=== PATIENT | male | born 2000 | race Caucasian/White ===

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

== ENCOUNTER → 2020-02-12 | Outpatient (CLI) | payer OTHER, SELFPAY | END | disposition home or self-care (01) | LOC: LABSPEC 16:01 | PROVIDERS: PCP Family Medicine; Referring Provider Family Medicine; Visit Provider Registered Nurse | DX: J03.90 Acute tonsillitis, unspecified (principal) | CPT/HCPCS: 87070 ==

== ENCOUNTER 2023-06-25 20:43 | Emergency (ER) | payer BC, SELFPAY ==
[2023-06-25 20:44] VITALS: BP 130/90; PULSE 78; RESP 18; TEMP 37; O2SAT 97
[2023-06-25 22:05] LABS: Absolute Lymphocyte Count 2.91 X10^3/uL (0.83-4.51); Absolute Neutrophil Count 5.3 X10^3/uL (2.0-7.7); Basophil# 0.07 X10^3/uL; Basophil% 0.8 % (0-1); Eosinophil# 0.14 X10^3/uL; Eosinophils% 1.5 % (0-5); Hematocrit 44.4 % (40-54); Hemoglobin 15.2 g/dL (13.0-16.5); Lymphocyte # 2.91 X10^3/ul (0.83-4.51); Lymphocyte % 32.1 % (19-41); Mean Corp Hgb Conc 34.2 g/dL (32-36); Mean Corpuscular Volume 87.7 fL (80-94); Mean Platelet Vol. 10.4 fl (6.2-12.0); Monocyte# 0.66 X10^3/uL; Monocyte% 7.3 % (0-10); NRBC Flagged by Analyzer 0 % (0-5); Neutrophil # 5.26 X10^3/uL (2.7-7.7); Neutrophil % 58.1 % (47-70); Platelet Count 254 K/mm3 (150-450); RBC Distribution Width CV 11.8 % (11.6-14.6); RBC Distribution Width SD 37.9 fl (35.1-43.9); Red Blood Count 5.06 M/mm3 (4.6-6.2); White Blood Count 9.1 K/mm3 (4.4-11.0)
--- NOTE | 2023-06-25 22:17 | EKG12_ITS ---
Test Reason : Blood Pressure : / mmHG Vent. Rate : 066 BPM Atrial Rate : 066 BPM P-R Int : 142 ms QRS Dur : 076 ms QT Int : 394 ms P-R-T Axes : 076 084 070 degrees QTc Int : 413 ms Normal sinus rhythm with sinus arrhythmia Normal ECG Confirmed by Yousuf Rayo ([id number]), staff editor AMINATA URIBE ([id number]) on 06/27/2023 11:03:37 AM Referred By: Confirmed By:Yousuf Rayo
--- NOTE | 2023-06-25 22:17 | ED.VIS.GI ---
HPI HPI - GI History of Present Illness Chief Complaint: Abd Pain Informant: patient Narrative Narrative: Healthy 22-year-old male has been having some right mid abdominal pain for the past 1.5-2 weeks. Hurts worse to move sometimes, it never is worse with eating, drinking, having bowel movements, or urinating. Does not radiate to the back. Saw his doctor and was prescribed muscle relaxers, diagnosed clinically as an oblique muscle strain. States the pain has been persisting but not necessarily bad. Today, however, he was having pain on the contralateral side and it went up into his left lower chest and made him feel lightheaded, this lasted a or 20 or 30 minutes before it really resolved and he came in because of that to be evaluated. He has not had any tests or x-rays done. He denies feeling racing heartbeat/palpitations or dyspnea or pleuritic discomfort. No pain or swelling in the legs. No recent travel out of the area or hospitalization/surgery. PFSH PFSH Medical History no medical history no medical history Allergy/AdvReac Type Severity Reaction Status Date / Time No Known Allergies Allergy Verified 06/25/23 20:44 Surgical History no surgical history no surgical history Social History (Updated 06/25/23 @ 22:[address] Miguel Angel Fernandes MD) Smoking Status: Smoker, status unknown substance use type: marijuana and other details: No IV drug use ROS ROS ED Constitutional Constitutional ED: Denies chills or fever(s) Eyes Eyes: Denies change in vision or diplopia ENT ENT ED: Denies rhinorrhea or sore throat Cardiovascular Cardiovascular: Reports chest pain and lightheadedness; Denies edema, orthostatic symptoms or palpitations Respiratory/Chest Respiratory/Chest: Denies cough or dyspnea Gastrointestinal Gastrointestinal: Reports abdominal pain; Denies diarrhea, hematochezia, melena, nausea or vomiting Genitourinary Genitourinary ED: Denies dysuria or hematuria Musculoskeletal Musculoskeletal: Denies back pain or neck pain Integumentary Denies abscess or rash Neurologic Neurologic: Denies headache(s), paresthesias or weakness Psychiatric Psychiatric: Denies anxiety or suicidal thoughts EXAM Physical Exam Const Vital Signs: 06/25/23 20:44 06/25/23 23:00 Temperature 98.6 F Temperature Source Temporal Pulse Rate 78 64 Respiratory Rate 18 16 Blood Pressure 130/90 H 108/81 H Blood Pressure Mean 103 90 Pulse Ox 97 99 Oxygen Delivery Method Room Air Room Air Positive well nourished and well developed General Appearance ED: well developed and NAD HEENT Reports moist mucous membranes normocephalic and atraumatic Eyes PERRL and EOMs intact bilaterally Neck full ROM and supple Chest Wall Chest Narrative: Mildly tender in the left costal margin, and the lateral aspect of the epigastrium. Below this in the abdomen, there is no tenderness. Xiphoid process is a little sore no crepitance or overlying skin abnormalities/color change. No other rib tenderness. Although not tender currently, patient suggests that the contralateral side was the pain he was having for the past 1.5 weeks, also costal margin. Resp normal respiratory effort and clear to auscultation bilaterally Cardio regular rate, regular rhythm and no murmurs Rate: Negative for tachycardic GI non-tender and non-distended Auscultation: normoactive bowel sounds Palpation: soft Back/Spine no CVA tenderness General Back: other FROM Extremity normal to inspection General Extremety ED: Negative for edema, pulses abnormal or tenderness General Extremity: Negative for edema or pulses abnormal Neuro oriented x3, CN's II-XII intact bilaterally and no sensory deficits noted Sensorium / Orientation: awake and alert Motor Exam: strength 5/5 throughout Psych mental status grossly normal and thought process normal Skin no rashes or lesions noted and no wounds MDM MDM MDM Narrative Medical decision making narrative: Patient has a very benign exam I suspect that he probably does have musculoskeletal etiology. However since he had chest discomfort earlier with some associated lightheadedness the differential does include cardiopulmonary etiologies, however we do not need to workup for pulmonary embolism since his PERC score is 0 and his vital signs are normal. Exam is very benign I do not think he needs advanced imaging of his abdomen/pelvis. Did obtain some basic labs including liver enzymes and lipase which were all normal except for mild hyperbilirubinemia which she has had in the past and may be indicative of Gilbert's disease; his EKG is normal, 2 view chest x-ray my interpretation is normal, I do not think he needs a troponin, if he had myocarditis he would more than likely still have symptoms, he does not have them right at this time. GERD is in the differential as are musculoskeletal etiologies, stable for discharge home we discussed follow-up and empiric treatment if he desires. He was offered Toradol here but he declined because the pain is not that bad. Encouraged to use NSAIDs as well because I do not think this is an intraluminal GI issue. Lab Data Attestation: I reviewed the patient's lab results. Labs: Laboratory Results - last 24 hr 06/25/23 06/25/23 22:01 22:59 WBC 9.1 RBC 5.06 Hgb 15.2 Hct 44.4 MCV 87.7 MCH 30.0 MCHC 34.2 RDW Std Deviation 37.9 RDW Coeff of Jeff 11.8 Plt Count 254 MPV 10.4 Immature Gran % (Auto) 0.200 Neut % (Auto) 58.1 Lymph % (Auto) 32.1 [place] % (Auto) 7.3 Eos % (Auto) 1.5 Baso % (Auto) 0.8 Absolute Neuts (auto) 5.3 Absolute Lymphs (auto) 2.91 Nucleated RBC % 0 Sodium 139 Potassium 4.3 Chloride 105 Carbon Dioxide 29.0 Anion Gap 5 BUN 19 H Creatinine 1.26 Estim Creat Clear Calc 82.48 Est GFR (MDRD) Af Amer 91 Est GFR (MDRD) Non-Af 75 BUN/Creatinine Ratio 15.1 Glucose 103 Calcium 9.6 Total Bilirubin 2.20 H AST 18 ALT 23 Alkaline Phosphatase 63 Total Protein 7.8 Albumin 4.5 Globulin 3.3 Albumin/Globulin Ratio 1.4 Lipase 17 Urine Color Yellow Urine Clarity Sl. Cloudy Urine pH 6.5 Ur Specific Smyer 1.015 Urine Protein 15 H Urine Glucose (UA) Normal Urine Ketones 5 H Urine Occult Blood Negative Urine Nitrite Negative Urine Bilirubin Negative Urine Urobilinogen 1 H Ur Leukocyte Esterase 25 H Urine RBC 0 SEEN Urine WBC 0 SEEN Ur Squamous Epith Cells 0 SEEN Amorphous Sediment 2+ Urine Bacteria 1+ Urine Mucus RARE Rhythm Strip Rhythm Strip: Sinus Rhythm Rate: 65 Ectopy: None EKG Initial EKG: Attestation: I personally reviewed and interpreted this EKG as follows: Interpretation: Sinus Rhythm and No Acute Injury Pattern Comments: nml EKG Discharge Plan Triage Chief Complaint: Abd Pain ED Provider: Miguel Angel Fernandes Dx/Rx/DC Orders Clinical Impression: Musculoskeletal chest pain, Right sided abdominal pain Instructions: ED Chest Pain, Noncardiac Primary Care Provider: Manny Ivory Referrals: Manny Ivory MD [Primary Care Provider] - 1 Week if not improving Disposition Disposition: Home, Self Care
[2023-06-25 22:27] LABS: ALB/GLOB Ratio 1.4 RATIO (0.9-2.4); AST(SGOT) 18 U/L (15-37); Alanine Aminotransfer ALT/SGPT 23 U/L (16-61); Albumin, Serum 4.5 g/dL (3.2-5.0); Alkaline Phosphatase 63 U/L (45-117); Anion Gap 5 (5-15); BUN 19 mg/dL (7-18); BUN/Creat Ratio 15.1 RATIO (10-20); Calcium,Total 9.6 mg/dL (8.5-10.1); Chloride 105 mmol/L (98-107); Creatinine, Serum 1.26 mg/dL (0.70-1.30); EST Glomerular Filtration Rate 75 mL/min (>60); Est Glom Filt Rate - Afr Amer 91 mL/min (>60); Estimated Creatinine Clearance 82.48 ml/min; Globulin 3.3 g/dL (2.2-4.2); Glucose 103 mg/dL (74-106); Potassium 4.3 mmol/L (3.5-5.1); Protein, Total 7.8 g/dL (6.4-8.2); Sodium Level 139 mmol/L (136-145)
--- NOTE | 2023-06-25 22:43 | RAD_ITS ---
EXAM: XR CHEST, 2 VIEWS CLINICAL INDICATION: chest pain TECHNIQUE: Frontal and lateral views of the chest. COMPARISON: No relevant prior studies available. FINDINGS: LUNGS AND PLEURAL SPACES: Unremarkable. No consolidation or edema. No pneumothorax. No effusion. HEART: Unremarkable. Cardiac silhouette not enlarged. Normal pulmonary vasculature. MEDIASTINUM: Central airways and mediastinal contour are unremarkable. No mediastinal widening. Trachea is midline. BONES/JOINTS: Unremarkable. No acute fracture. SOFT TISSUES: Unremarkable. RAD/Chest PA and Lateral IMPRESSION: No radiographic evidence of acute cardiopulmonary disease. Electronically Signed: Rashad Shearer MD at 23:34 EDT ,
[2023-06-25 23:00] VITALS: BP 108/81; PULSE 64; RESP 16; O2SAT 99
--- NOTE | 2023-06-25 23:05 | ED.RN ---
PT STATES THAT THE ABDOMINAL PAIN IN HIS RUQ TRAVELS TO THE LEFT SIDE OF HIS CHEST. DOES ENDORSE SOME DIZZINESS PREVIOUSLY IN THE EVENING BUT DENIES ANY AT THIS TIME.
[2023-06-25 23:06] LABS: Red Blood Cells-Urine 0 SEEN /hpf (0-5); Squamous Epithelial Cells - UA 0 SEEN /hpf (0-5); White Blood Cells 0 SEEN /hpf (0-5)
[2023-06-25 23:07] LABS: Lipase 17 U/L (13-75)
[2023-06-25 23:08] LABS: Color, Urine Yellow (Yellow); Glucose, Dipstick Normal (Normal); Ketone-Dipstick 5 mg/dl (Negative); Leukocyte Esterase-Dipstick 25 /ul (Negative); Nitrite-Dipstick Negative (Negative); Occult Blood-Urine Negative /ul (Negative); Protein-Dipstick 15 mg/dl (Negative); Specific Gravity, Urine 1.015 (1.002-1.030); Urine Bilirubin Dipstick Negative (Negative); Urine Clarity Sl. Cloudy (Clear); Urine Urobilinogen 1 mg/dl (Normal); Urine pH 6.5 (5.0 - 8.0)
[2023-06-25 23:13] LABS: Amorphous Sediment 2+; Bacteria 1+ /hpf (None Seen); Mucous, Urine RARE /hpf (<or=2+)
[2023-06-25 23:28] VITALS: BP 107/77; PULSE 64; RESP 16; TEMP 36.4; O2SAT 99
== END 2023-06-25 23:31 | disposition home or self-care (01) ==
PROVIDERS: Emergency Provider Emergency Medicine; PCP Family Medicine; Visit Provider Emergency Medicine
DX: R07.89 Other chest pain (principal); R10.9 Unspecified abdominal pain; R42 Dizziness and giddiness
CPT/HCPCS: 71046; 80053; 81001; 83690; 85025; 93005; 96374; 99283; A4216

== ENCOUNTER 2023-07-23 12:49 | Emergency (ER) | payer BC, SELFPAY ==
[2023-07-23 12:49] VITALS: BP 136/99; PULSE 72; RESP 16; TEMP 36.2; O2SAT 99; BMI 17.8
--- NOTE | 2023-07-23 14:02 | EDS_ITS ---
HPI History of Present Illness Chief Complaint: Head Injury Informant: patient Onset/Context/Timing Mechanism/Context: Blunt Injury Current Severity: Mild Maximum Severity: Mild Associated Symptoms Associated Symptoms: Negative for Parasthesias, Weakness, Loss of function, Inability to ambulate, Loss of consciousness or Amnesia Narrative Narrative: 23-year-old male no seen past medical or surgical history other than history of reflux. He is on omeprazole. Yesterday he was putting up a canopy and one of the poles struck him in the left side of his head. No LOC. No laceration. No severe headache. No neck pain. He is on no blood thinners. Today he said he just kind of feels out of it. No vomiting. Prior similar symptoms: No Recent Illness/Hospitalization: No PFSH PFSH Medical History no medical history no medical history Allergy/AdvReac Type Severity Reaction Status Date / Time No Known Allergies Allergy Verified 07/23/23 12:51 Surgical History no surgical history no surgical history Social History Smoking Status: Smoker, status unknown substance use type: marijuana and other details: No IV drug use ROS ROS ED ROS Narrative Denies any recent illness. No severe headache. No nausea or vomiting. Review of Systems ROS Unobtainable: Denies due to encephalopathy Constitutional Constitutional ED: Denies chills or fever(s) Eyes Eyes: Denies blurry vision ENT ENT ED: Denies ear pain Cardiovascular Cardiovascular: Denies chest pain Respiratory/Chest Respiratory/Chest: Denies cough or dyspnea Gastrointestinal Gastrointestinal: Denies abdominal pain, constipation, diarrhea, melena, nausea or vomiting Genitourinary Genitourinary ED: Denies dysuria or hematuria Musculoskeletal Musculoskeletal: Denies arthralgias Integumentary Denies abscess Neurologic Neurologic: Denies headache(s) Psychiatric Psychiatric: Denies anxiety Endocrine Endocrinology: Denies cold intolerance Hematologic/Lymphatic Hematologic/Lymphatic: Denies easy bleeding, easy bruising or lymphadenopathy Allergic/Immunologic Allergic/Immunologic ED: Denies mouth swelling, tongue swelling or urticaria EXAM Physical Exam Narrative Exam Narrative: Well-appearing 23-year-old male. Vital signs stable afebrile. HEENT exam pupils are reactive light. Extra motions are intact. He was in the left side of his head there is no sign of hematoma or laceration. No significant tenderness. Otherwise scalp completely unremarkable. Neck nontender. Full range of motion. No C-spine back or spine tenderness. Lungs clear to auscultation bilaterally. Heart regular rhythm no murmur. Chest wall and ribs nontender. Abdomen soft nontender. Pelvic girdle intact. Moving all 4 extremities. 5 of 5 process safety engineer strength. Dorsi plantarflexion intact. Full range of motion. Normal strength. No deformity. Neurologically awake alert. Answer questions following commands. GCS 15. Fingertip to nose within normal limits. Rapid hand movements normal. He can ambulate without any difficulty. No ataxia. Negative Romberg. Const Vital Signs: 07/23/23 12:49 07/23/23 12:49 Temperature 97.2 F L Temperature Source Temporal Pulse Rate 72 Respiratory Rate 16 Respiratory Effort Normal Respiratory Depth Normal Respiratory Pattern Normal Blood Pressure 136/99 H Blood Pressure Mean 111 Pulse Ox 99 Oxygen Delivery Method Room Air Room Air Positive well nourished and well developed; Negative for obese, cachectic, contractures or unkempt General Appearance ED: well developed and NAD; Negative for unkempt, cachectic or contractures Nutritional Appearance: Negative for cachectic or obese HEENT HEENT Narrative: No hematoma. No laceration. Nontender scalp. trauma; Negative for atraumatic or tenderness Eyes PERRL and EOMs intact bilaterally General Eye ED: Negative for other Neck full ROM General: Negative for tenderness Chest Wall inspection of chest normal and palpation of chest normal Breast/Axilla Inspection: Negative for other Resp normal respiratory effort and clear to auscultation bilaterally Effort and Inspection: Negative for pain with movement Auscultation: Negative for rales, rhonchi, wheezes or diminished lung sounds Cardio regular rhythm, S1 normal heart sound, S2 normal heart sound and no murmurs Palpation: Negative for palpable S3 Rhythm: Negative for abnormal rhythm GI normal to inspection, nondistended, normoactive bowel sounds, non-tender, non- distended and no masses Inspection: Negative for abdominal distention Auscultation: normoactive bowel sounds Palpation: soft; Negative for tender, guarding or rebound tenderness present Back/Spine normal to inspection and no thoracic nor lumbar tenderness General Back: Negative for CVA tenderness Thoracic Spine / Upper Back: Negative for thoracic spinal tenderness Extremity normal to inspection and full ROM General Extremety ED: Negative for deformity, edema or tenderness General Extremity: Negative for deformity or edema Neuro oriented x3, CN's II-XII intact bilaterally, moves all extremities, no focal motor deficits and no sensory deficits noted Dudley Coma Scale: document GCS findings Spontaneous Obeys Commands Oriented 15 Sensorium / Orientation: alert, oriented to person, oriented to place and oriented to time; Negative for orientation impaired, lethargic or stuporous Motor Exam: strength 5/5 throughout Psych mental status grossly normal and thought process normal Appearance: Negative for unkempt Attitude: No agitated Mood & Affect: Negative for depressed, anxious or tearful Skin no rashes or lesions noted, no wounds, skin turgor normal and no jaundice General Skin Exam: Negative for other Trauma: Negative for abrasion Wounds: Negative for wounds noted MDM MDM MDM Narrative Medical decision making narrative: 20-year-old male with head injury yesterday. No LOC. No hematoma or tenderness today. Completely normal neurologic exam. No history of anticoagulation. He does not meet criteria to need any imaging today. Will be treated as a closed head injury. Minor concussion. Outpatient follow-up as needed. Given instructions when to return. Patient is comfortable to plan. History & Record Review Discussion w/independent historian: Patient Discharge Plan Triage Chief Complaint: Head Injury ED Provider: Rajan Loya Dx/Rx/DC Orders Clinical Impression: Closed head injury Instructions: ED Concussion Primary Care Provider: Raimundo Ivory Referrals: Raimundo Ivory MD [Primary Care Provider] - 1 Week if not improving Activity Restrictions/Additional Instructions: Tylenol for any pain. Plenty of fluids and rest. You have a closed head injury possibly mild concussion. Symptoms should progressively get better. If you have a horrible headache, intractable vomiting or not acting right we need to reevaluate you. Otherwise follow-up with your primary care physician to ensure you are improving. Disposition Disposition: Home, Self Care
[2023-07-23 14:14] VITALS: BP 116/75; PULSE 83; RESP 18; TEMP 37.1; O2SAT 98
== END 2023-07-23 14:15 | disposition home or self-care (01) ==
LOC: ED 14:07
PROVIDERS: Emergency Provider Emergency Medicine; PCP Family Medicine; Visit Provider Emergency Medicine
DX: S06.0X0A Concussion without loss of consciousness, initial encounter (principal); W20.8XXA Other cause of strike by thrown, projected or falling object, initial encounter
CPT/HCPCS: 99282

== ENCOUNTER 2023-08-13 13:36 | Emergency (ER) | payer BC, SELFPAY ==
[2023-08-13 13:36] VITALS: BP 119/71; PULSE 115; RESP 20; O2SAT 100
[2023-08-13 13:37] VITALS: BP 119/71; PULSE 116; RESP 20; TEMP 36.4; O2SAT 99; BMI 20.2
--- NOTE | 2023-08-13 14:45 | EKG12_ITS ---
Test Reason : CP Blood Pressure : / mmHG Vent. Rate : 106 BPM Atrial Rate : 106 BPM P-R Int : 144 ms QRS Dur : 086 ms QT Int : 340 ms P-R-T Axes : 080 075 064 degrees QTc Int : 451 ms Sinus tachycardia Otherwise normal ECG Confirmed by CHANCE RUSH MD ([id number]), tape editor NOMAN ENCISO ([id number]) on 08/15/2023 6:54:58 AM Referred By: WOJCIECH Confirmed By:CHANCE RUSH MD
[2023-08-13 15:07] LABS: Absolute Lymphocyte Count 1.49 X10^3/uL (0.83-4.51); Absolute Neutrophil Count 7.9 X10^3/uL (2.0-7.7); Basophil# 0.06 X10^3/uL; Basophil% 0.6 % (0-1); Hematocrit 41.2 % (40-54); Hemoglobin 14.5 g/dL (13.0-16.5); Lymphocyte # 1.49 X10^3/ul (0.83-4.51); Lymphocyte % 14.6 % (19-41); Mean Corp Hgb Conc 35.2 g/dL (32-36); Mean Corpuscular Hgb 30.5 pg (27.0-32.0); Mean Corpuscular Volume 86.7 fL (80-94); Mean Platelet Vol. 10.2 fl (6.2-12.0); Monocyte# 0.66 X10^3/uL; Monocyte% 6.5 % (0-10); NRBC Flagged by Analyzer 0 % (0-5); Neutrophil # 7.87 X10^3/uL (2.7-7.7); Platelet Count 222 K/mm3 (150-450); RBC Distribution Width SD 38.3 fl (35.1-43.9); Red Blood Count 4.75 M/mm3 (4.6-6.2); White Blood Count 10.2 K/mm3 (4.4-11.0)
--- NOTE | 2023-08-13 15:14 | ED.VIS.CHEST ---
HPI History of Present Illness Chief Complaint: Chest Pain Narrative Narrative: 23-year-old male presenting with chest pain, dizziness. Patient states he was out for a walk when this came on abruptly. He states he has had this previously although it was more chest pain and it was shortness of breath and dizziness. Today he felt more dizzy and states that he started to feel tingling in his fingers. Denies headache, nausea. Patient states his chest pain was not as severe as it had been in the past. Patient otherwise healthy prior to today's episode. He is active. Patient states he drinks plenty of fluids and is eating normally. No fevers or chills. Patient states he has a monitor on currently which is put on by his primary care physician and he also was put on a PPI and given albuterol inhaler given his symptoms previously. Prior Similar Symptoms: Yes Recent Illness/Hospitalization: No CVD Risk Factors: Negative for Hypertension, Diabetes, Hypercholesterolemia, Family History 1' </=55 or Smoking PE Risk Factors: Negative for Recent Travel/Surgery, Recent Immobilization, Prior DVT or PE, Cancer or OCP + Smoking + >/=35 TAD Risk Factors: Negative for Marfan's Syndrome PFSH PFS Home Medications omeprazole 40 mg capsule,delayed release 40 mg PO DAILY 07/23/23 [History Last Taken Unknown] Allergy/AdvReac Type Severity Reaction Status Date / Time No Known Allergies Allergy Verified 08/13/23 13:37 Social History Smoking Status: Smoker, status unknown substance use type: marijuana and other details: No IV drug use ROS ROS ED Constitutional Constitutional ED: Denies chills, fever(s) or sweats Eyes Eyes: Denies blurry vision or change in vision ENT ENT ED: Denies ear pain or sore throat Cardiovascular Cardiovascular: Reports chest pain, palpitations and other Details: Lightheadedness ; Denies racing heartbeat Respiratory/Chest Respiratory/Chest: Reports dyspnea; Denies cough or sputum Gastrointestinal Gastrointestinal: Denies abdominal pain, constipation, diarrhea, nausea or vomiting Genitourinary Genitourinary ED: Denies dysuria, hematuria or urinary frequency Musculoskeletal Musculoskeletal: Denies arthralgias, myalgias or neck pain Integumentary Denies abscess, Abrasions or rash Neurologic Neurologic: Denies headache(s), paresthesias or weakness Psychiatric Psychiatric: Denies anxiety, depression, suicidal ideation or suicidal thoughts Endocrine Endocrinology: Denies polydipsia or polyuria EXAM Physical Exam Const Vital Signs: 08/13/23 13:37 08/13/23 13:36 08/13/23 15:57 Temperature 97.5 F L 98.1 F Temperature Source Temporal Temporal Pulse Rate 116 H 115 H 86 Pulse Rate [Lying] Pulse Rate [Sitting (for 1 minute prior to obtaining)] Pulse Rate [Standing (for 1 minute prior to obtaining)] Respiratory Rate 20 H 20 H 11 L Respiratory Effort Respiratory Pattern Blood Pressure 119/71 119/71 96/74 Blood Pressure [Lying] Blood Pressure [Sitting (for 1 minute prior to obtaining)] Blood Pressure [Standing (for 1 minute prior to obtaining)] Blood Pressure Mean 87 87 81 Blood Pressure Mean [Lying] Blood Pressure Mean [Sitting (for 1 minute prior to obtaining)] Blood Pressure Mean [Standing (for 1 minute prior to obtaining)] Pulse Ox 99 100 100 Oxygen Delivery Method Room Air Room Air Room Air 08/13/23 15:57 08/13/23 15:59 08/13/23 15:59 Temperature Temperature Source Pulse Rate Pulse Rate [Lying] Pulse Rate [Sitting (for 1 minute prior to obtaining)] Pulse Rate [Standing (for 1 minute prior to obtaining)] Respiratory Rate Respiratory Effort Normal Non-Labored Normal Non-Labored Respiratory Pattern Normal Blood Pressure Blood Pressure [Lying] Blood Pressure [Sitting (for 1 minute prior to obtaining)] Blood Pressure [Standing (for 1 minute prior to obtaining)] Blood Pressure Mean Blood Pressure Mean [Lying] Blood Pressure Mean [Sitting (for 1 minute prior to obtaining)] Blood Pressure Mean [Standing (for 1 minute prior to obtaining)] Pulse Ox Oxygen Delivery Method Room Air 08/13/23 16:00 08/13/23 16:43 Temperature 97.6 F L Temperature Source Temporal Pulse Rate 79 Pulse Rate [Lying] 73 Pulse Rate [Sitting (for 1 minute prior to obtaining)] 80 Pulse Rate [Standing (for 1 minute prior to obtaining)] 82 Respiratory Rate 11 L Respiratory Effort Respiratory Pattern Blood Pressure 113/72 Blood Pressure [Lying] 97/71 Blood Pressure [Sitting (for 1 minute prior to obtaining)] 110/81 H Blood Pressure [Standing (for 1 minute prior to obtaining)] 117/81 H Blood Pressure Mean 85 Blood Pressure Mean [Lying] 79 Blood Pressure Mean [Sitting (for 1 minute prior to obtaining)] 90 Blood Pressure Mean [Standing (for 1 minute prior to obtaining)] 93 Pulse Ox 100 Oxygen Delivery Method Room Air Positive well nourished General Appearance ED: NAD; Negative for pallor HEENT Reports moist mucous membranes normocephalic and atraumatic Eyes PERRL and EOMs intact bilaterally Neck no lymphadenopathy Chest Wall inspection of chest normal Resp normal respiratory effort and clear to auscultation bilaterally Auscultation: Negative for rales, rhonchi or wheezes Cardio regular rhythm Rate: tachycardic GI normal to inspection, nondistended, normoactive bowel sounds Extremity normal to inspection General Extremety ED: Yes edema General Extremity: edema Neuro oriented x3 and CN's II-XII intact bilaterally Motor Exam: strength 5/5 throughout Psych mental status grossly normal Skin General Skin Exam: Negative for jaundice or pallor Heart Score History: Slightly/Non-Suspicious ECG: Normal Age: </= 45 years Risk Factors: No Risk Factors Troponin: </= Normal Limit Score: 0 MDM MDM MDM Narrative Medical decision making narrative: Patient presenting with lightheadedness and chest discomfort. Differential includes ACS, pneumonia, PE, electrolyte abnormalities, dehydration, anemia. CBC was obtained assess for blood cell count, hemoglobin/renal function, electrolytes, glucose. High-sensitivity troponin EKG to assess for ischemia/dysrhythmia. Orthostatic vital signs will be obtained. Chest x-ray to rule out pneumonia. D-dimer will be obtained to assess for blood clot. CBC shows normal blood cell count, hemoglobin, platelets. BMP shows normal electrolytes. Creatinine slightly elevated 1.4 and orthostatics were negative patient was given IV fluids. High-sensitivity troponin less than 3. D-dimer is negative. Chest x-ray my interpretation shows no acute cardiopulmonary process. Radiologist interpretation agrees. EKG on my interpretation shows sinus tachycardia at a rate of 106 bpm without sign of ischemic change or dysrhythmia. On reevaluation patient tolerates his 70s. Blood pressure is normal. Oxygen 100%. We discussed all of his lab work and imaging and he is comfortable being discharged home at this point. Precautions were discussed. Impression: 1. Lightheadedness 2. Chest pain Lab Data Labs: Laboratory Results - last 24 hr 08/13/23 14:56 WBC 10.2 RBC 4.75 Hgb 14.5 Hct 41.2 MCV 86.7 MCH 30.5 MCHC 35.2 RDW Std Deviation 38.3 RDW Coeff of Jeff 12.0 Plt Count 222 MPV 10.2 Immature Gran % (Auto) 0.300 Neut % (Auto) 77.0 H Lymph % (Auto) 14.6 L [place] % (Auto) 6.5 Eos % (Auto) 1.0 Baso % (Auto) 0.6 Absolute Neuts (auto) 7.9 H Absolute Lymphs (auto) 1.49 Nucleated RBC % 0 D-Dimer Quant (PE/DVT) < 0.27 L Sodium 138 Potassium 3.5 Chloride 103 Carbon Dioxide 28.0 Anion Gap 7 BUN 17 Creatinine 1.40 H Estim Creat Clear Calc 74.39 Est GFR (MDRD) Af Amer 81 Est GFR (MDRD) Non-Af 67 BUN/Creatinine Ratio 12.1 Glucose 113 H Calcium 9.6 Troponin I High Sens < 3 L Radiography Diagnostic Testing: Clinical Impression(s) from Imaging Studies Chest X-Ray 08/13/23 15:50 IMPRESSION: Normal x-ray examination of the chest. Electronically Signed: Ac Young MD at 16:20 EDT , Discharge Plan Triage Chief Complaint: Chest Pain Other Complaint: Weakness ED Provider: Rakan Woodard Dx/Rx/DC Orders Instructions: ED Chest Pain, Noncardiac, ED Dizziness, Uncertain Cause Prescriptions: No Action omeprazole 40 mg capsule,delayed release(DR/EC) 40 mg PO DAILY Primary Care Provider: Raimundo Ivory Referrals: Raimundo Ivory MD [Primary Care Provider] - Disposition Disposition: Home, Self Care
[2023-08-13 15:25] LABS: Anion Gap 7 (5-15); BUN 17 mg/dL (7-18); BUN/Creat Ratio 12.1 RATIO (10-20); Calcium,Total 9.6 mg/dL (8.5-10.1); Chloride 103 mmol/L (98-107); EST Glomerular Filtration Rate 67 mL/min (>60); Est Glom Filt Rate - Afr Amer 81 mL/min (>60); Estimated Creatinine Clearance 74.39 ml/min; Glucose 113 mg/dL (74-106); Potassium 3.5 mmol/L (3.5-5.1); Sodium Level 138 mmol/L (136-145); Troponin-I HS < 3 pg/mL (3.0-78.0)
[2023-08-13 15:35] LABS: D-Dimer Quantitative (DVT/PE) < 0.27 FEU/ug/m (0.27-0.49)
[2023-08-13] MEDS: Aspirin 81 MG TAB.CHEW 324 MG PO (15:47)
[2023-08-13] MEDS: 0.9% Normal Saline (1000mL) 1,000 ML 999 ML IV (15:47)
--- NOTE | 2023-08-13 15:50 | RAD_ITS ---
STUDY: X-RAY CHEST REASON FOR EXAM: Male, 23 years old. chest pain TECHNIQUE: Single AP portable view of the chest. COMPARISON: 06/25/2023. FINDINGS: The lungs are clear and expanded. There is no demonstrated pleural abnormality. Normal size heart. Normal mediastinum and ap. Normal visualized pulmonary arteries. Normal visualized aortic arch and descending thoracic aorta. Normal visualized thoracic spine. Normal visualized ribs, clavicles, and shoulders. There is no demonstrated abnormality of the visualized soft tissue structures of the upper abdomen. RAD/Chest 1 View (Portable) IMPRESSION: Normal x-ray examination of the chest. Electronically Signed: Ac Young MD at 16:20 EDT ,
[2023-08-13 15:57] VITALS: BP 96/74; PULSE 86; RESP 11; TEMP 36.7; O2SAT 100
[2023-08-13 16:00] VITALS: BP 113/72; PULSE 79; RESP 11; TEMP 36.4; O2SAT 100
[2023-08-13 16:43] VITALS: BP 110/81; BP 117/81; BP 97/71; PULSE 73; PULSE 80; PULSE 82
[2023-08-13 17:04] VITALS: BP 127/80; PULSE 81; RESP 16; TEMP 36.4; O2SAT 99
== END 2023-08-13 17:06 | disposition home or self-care (01) ==
PROVIDERS: Emergency Provider Student in an Organized Health Care Education/Training Program; PCP Family Medicine; Visit Provider Student in an Organized Health Care Education/Training Program
DX: R42 Dizziness and giddiness (principal); R07.9 Chest pain, unspecified; R06.02 Shortness of breath; R53.1 Weakness; F17.200 Nicotine dependence, unspecified, uncomplicated; Z79.899 Other long term (current) drug therapy
CPT/HCPCS: 71045; 80048; 84484; 85025; 85379; 93005; 96360; 99285; J7030

== ENCOUNTER 2024-03-03 21:11 | Emergency (ER) | payer BC, SELFPAY ==
[2024-03-03 21:11] VITALS: BP 128/87; PULSE 74; RESP 18; TEMP 36.4; O2SAT 100; BMI 20.9
[2024-03-03 23:11] VITALS: BP 126/88; PULSE 74; RESP 16; O2SAT 100
--- NOTE | 2024-03-03 23:12 | CT_ITS ---
INDICATION: L headache w/ transient R neuro sx EXAMINATION: CT BRAIN - CT Head or Brain W/O Contrast Injection TECHNIQUE: Multiple axial images were obtained of the head without intravenous contrast. A radiation dose optimization technique was used for this scan. IV Contrast dosage and agent: None. RADIATION DOSAGE (If Supplied By Facility): CTDIvol = ( 44.99 ) mGy, DLP = ( 897.35 ) mGycm COMPARISON: No relevant prior comparison study available FINDINGS: BRAIN PARENCHYMA: No intra- or extra-axial hemorrhage. No evidence of acute infarct. No intracranial mass or mass effect. There is preservation of the matthews/white matter interface. Posterior fossa structures are unremarkable. No parenchymal abnormality. CSF SPACES: No cerebral volume loss. No hydrocephalus. Basal cisterns are patent. CALVARIUM, SKULL BASE, PARANASAL SINUSES AND MASTOID AIR CELLS: The mastoid air cells and visualized paranasal sinuses are well aerated. The calvarium is intact. No discrete lytic or blastic abnormalities. ORBITS: Both globes, extraocular muscles, optic nerves and retrobulbar fat appear unremarkable. CT/Brain/Head without Contrast IMPRESSION: No acute intracranial finding. Electronically Signed: Nicholas Iraheta MD at 23:50 EST Reading Location ID and State: [facility] / [place] Tel , Service support ,
--- NOTE | 2024-03-03 23:12 | EX.ED.VIS.HA ---
HPI History of Present Illness Chief Complaint: Numb/Ting Informant: patient Narrative Narrative: 23-year-old male has a longstanding history of migraines, states he gets them once or twice a month on average. He had 1 that started gradually today around 4 or 5 hours prior to evaluation, and just before the headache started he had prodromal blind spot in his vision which is typical for him. He took some Tylenol and went to sleep. He woke up and the vision spots were gone which is typical, but he had numbness tingling in his right arm followed by the right lower face and tongue. No weakness. No speech difficulty or difficulty understanding others. He has never had the tingling before. The tingling lasted for an hour or 2 and gradually resolved and now the only symptoms that he has is of the left sided frontal/retro-orbital migraine/headache and some mild nausea. He has had no vomiting or other significant visual symptoms, no vision loss. No problems walking or ataxia. No leg tingling or weakness. No recent illness. His triggers are always unknown. He denies any recent head injury. [facility] Medical History (Updated 03/03/24 @ 23:[address] Miguel Angel Fernandes MD) Migraines Home Medications ?Medication ?Instructions ?Recorded ?Last Taken ?Type omeprazole 40 mg capsule,delayed 40 mg PO DAILY 07/23/23 Unknown History release escitalopram oxalate 10 mg tablet 10 mg PO DAILY 03/03/24 Unknown History Allergy/AdvReac Type Severity Reaction Status Date / Time No Known Allergies Allergy Verified 03/03/24 21:11 Social History Smoking Status: Smoker, status unknown substance use type: marijuana and other details: No IV drug use ROS ROS ED Constitutional Constitutional ED: Denies chills or fever(s) Eyes Eyes: Reports blurry vision; Denies diplopia ENT ENT ED: Denies ear pain or sore throat Cardiovascular Cardiovascular: Denies chest pain or palpitations Respiratory/Chest Respiratory/Chest: Denies cough or dyspnea Gastrointestinal Gastrointestinal: Reports nausea and vomiting; Denies abdominal pain or diarrhea Genitourinary Genitourinary ED: Denies dysuria or urinary frequency Musculoskeletal Musculoskeletal: Denies back pain or myalgias Integumentary Denies abscess or rash Neurologic Neurologic: Reports headache(s); Denies paresthesias or weakness EXAM Physical Exam Const Vital Signs: 03/03/24 21:11 03/03/24 23:11 Temperature 97.6 F L Temperature Source Temporal Pulse Rate 74 74 Respiratory Rate 18 16 Blood Pressure 128/87 H 126/88 H Blood Pressure Mean 100 100 Pulse Ox 100 100 Oxygen Delivery Method Room Air Room Air Positive well nourished and well developed Constitutional Narrative: Well-appearing General Appearance ED: well developed and NAD HEENT Reports normocephalic, TM's clear and moist mucous membranes atraumatic Tympanic Membrane ED: Yes TM's clear Eyes PERRL, EOMs intact bilaterally and conjunctivae normal Eyes Narrative: No significant photophobia Neck no lymphadenopathy, supple and no meningeal signs Resp normal respiratory effort Extremity normal to inspection and full ROM Neuro oriented x3, CN's II-XII intact bilaterally and gait normal Neuro Narrative: Normal speech. Normal office coordinator receptionist. NIHSS 0. Sensorium / Orientation: awake and alert Speech: speech normal Gait (Neuro): normal gait Motor Exam: strength 5/5 throughout Psych mental status grossly normal Skin Lesions: no lesions Rashes: no rashes MDM MDM MDM Narrative Medical decision making narrative: Given the new left brain symptoms, obtained a CT to rule out bleed or other acute pathology. I reviewed the imaging and the report which I agree with, it is normal. In the meantime the patient was given Reglan for his headache. Much improved afterwards. I think these neurologic symptoms were related to his migraine and probably due to it, for reasons that are unclear. However, given that he is young healthy non-smoker no stroke risk factors, I do not think he needs to be admitted emergently for an MRI and further workup emergently. Advised to follow-up with his doctor, he is comfortable with that plan. Radiography Diagnostic Testing: Clinical Impression(s) from Imaging Studies Brain CT 03/03/24 23:12 IMPRESSION: No acute intracranial finding. Electronically Signed: Nicholas Iraheta MD at 23:50 EST , Discharge Plan Triage Chief Complaint: Numb/Ting ED Provider: Miguel Angel Fernandes Dx/Rx/DC Orders Clinical Impression: Migraine headache with aura Instructions: ED, Migraine (Classical) Prescriptions: No Action omeprazole 40 mg capsule,delayed release(DR/EC) 40 mg PO DAILY escitalopram oxalate 10 mg tablet 10 mg PO DAILY Primary Care Provider: Raimundo Ivory Referrals: Raimundo Ivory MD [Primary Care Provider] - (Call for follow-up appointment) Print Language: Cymraes Disposition Disposition: Home, Self Care
[2024-03-03] MEDS: DiphenhydrAMINE 50 MG/ML Syringe 25 MG IV (23:17)
[2024-03-03] MEDS: Metoclopramide 10 MG/2 ML Vial 5 MG IV (23:19)
[2024-03-04 00:22] VITALS: BP 121/72; PULSE 69; RESP 17; TEMP 36.7; O2SAT 99
== END 2024-03-04 00:24 | disposition home or self-care (01) ==
LOC: ED 23:22
PROVIDERS: Emergency Provider Emergency Medicine; PCP Family Medicine; Visit Provider Emergency Medicine
DX: G43.109 Migraine with aura, not intractable, without status migrainosus (principal); Z79.899 Other long term (current) drug therapy
CPT/HCPCS: 70450; 96374; 96375; 99283; A4216

== ENCOUNTER → 2024-11-11 | Outpatient (CLI) | payer BC, SELFPAY ==
--- NOTE | 2024-11-11 17:11 | RAD_ITS ---
PROCEDURE: FINGER(S) MIN 2 VIEWS 11/11/2024 REASON FOR EXAM: BUMP PIP JOINT AREA TECHNIQUE: FINGER(S) MIN 2 VIEWS COMPARISON: None. FINDINGS: No evidence of acute fracture or dislocation. Soft tissues are unremarkable. RAD/Finger(s) Min 2 Views IMPRESSION: No acute osseous abnormalities. Reading Location: [id number]
== END | disposition home or self-care (01) ==
LOC: MTRAD 17:10
PROVIDERS: PCP Family Medicine
DX: L98.9 Disorder of the skin and subcutaneous tissue, unspecified (principal)
CPT/HCPCS: 73140